=== PATIENT | male | born 1945 | race American Indian/Alaskan Native ===

== ENCOUNTER 2019-09-03 00:27 | Emergency (ER) | payer OTHER ==
[2019-09-03 01:36] VITALS: BP 179/87
== END 2019-09-03 04:16 | disposition home or self-care (01) ==
LOC: ED 00:27
DX: R33.9 Retention of urine, unspecified (principal); I10 Essential (primary) hypertension; R10.30 Lower abdominal pain, unspecified; E11.9 Type 2 diabetes mellitus without complications; Z79.1 Long term (current) use of non-steroidal anti-inflammatories (NSAID); Z79.899 Other long term (current) drug therapy
CPT/HCPCS: 51702; 81001